=== PATIENT | male | born 1995 | race African-American/Black ===

== ENCOUNTER 2017-04-26 11:04 | Emergency (ER) | payer OTHER, MEDICAID ==
[~2017-04-26] VITALS: Ht 177.8 cm; Wt 70.0 kg
[2017-04-26 11:05] VITALS: BP 136/62; PULSE 83; RESP 16; TEMP 98.1; O2SAT 100
[2017-04-26] MEDS ORDERED: ACETAMINOPHEN/HYDROcodone 325 MG/5 MG TAB PO ONE (11:30)
[2017-04-26] MEDS ORDERED: TETANUS/DIPHTHERIA TOXOID ADULT 0.5 ML VIAL IM ONE (11:30)
[2017-04-26] MEDS ORDERED: AMOXICILLIN/CLAVULANATE K 875 MG TAB PO ONE (11:30)
--- NOTE | 2017-04-26 11:42 | PD ---
HPI Chief Complaint: Bite or Sting Time Seen by Provider: 11:38 Travel History International Travel<30 days: No Contact w/Intl Traveler<30days: No Traveled to known affect area: No History of Present Illness HPI 21- year old male brought to the ED by police for medical management of a dog bite. The police report that the patient was running from them and the police canine ran after him. The patient incurred 8 bites to his right leg ranging from his knee to ankle. The patient reports no pain elsewhere. The patient reports he is not up to date with his tetanus shot. This happened hour before coming. He denies any other injuries. He does have a history of HIV but unsure if he takes anything. No allergies to medication. No other medical issues. Per patient his pain currently is 8 out of 10 especially with touch on the leg. PFSH Past Medical History Medical History: Unable to Obtain Diminished Hearing: No Past Surgical History Surgical History: Unable to Obtain Social History Alcohol Use: No (DENIES ) Tobacco Use: No (DENIES ) Substance Use: No (DENIES ) Allergies-Medications (Allergen,Severity, Reaction): Coded Allergies: No Known Allergies (Unverified , 04/26/17) Reported Meds & Prescriptions Reported Meds & Active Scripts Active Diclofenac Sodium DR (Diclofenac Sodium) 75 Mg Tabdr 75 Mg PO BID PRN Augmentin (Amoxicillin-Clavulanate) 875-125 Mg Tab 1 Tab PO BID 10 Days Review of Systems General / Constitutional: No: Fever, Chills, Weight Gain, Weight Loss, Other Eyes: No: Diploplia, Blurred Vision, Photophobia, Drainage, Redness, Foreign Body Sensation, Pain, Tearing, Blind Spots, Visual changes, Blindness, Other HENT: No: Headaches, Vertigo, Lightheadedness, Sore Throat, Rhinitis, Rhinorrhea, Congestion, Nosebleed, Neck Stiffness, Neck Pain, Masses, Gingival Bleeding, Dental Difficulties, Ear Discharge, Earache, Other Cardiovascular: No: Chest Pain or Discomfort, Palpitations, Irregular Rhythm, Tachycardia, Diaphoresis, Syncope, Dyspnea on exertion, Varicosities, Edema, Cyanosis, Varicosities, Phlebitis, Claudication, Other Respiratory: No: Cough, Shortness of Breath, Wheezing, Sneezing, Orthopnea, Hemoptysis, Stridor, Night Sweats, Pleuritic Pain, Other Gastrointestinal: No: Nausea, Vomiting, Diarrhea, Abdominal Pain, Hematemesis, Hematochezia, Constipation, Changes in Bowel Habits, Indigestion, Dysphagia, Loss of Appetite, Other Genitourinary: No: Urgency, Frequency, Dysuria, Nocturia, Hematuria, Decreased Urinary Output, Oliguria, Hesitancy, Dribbling, Incontinence, Pelvic Pain, Flank Pain, Dyspareunia, Discharge, Dysmenorrhea, Menorrhagia, Metorrhagia, Vaginal Bleeding, Other Musculoskeletal: No: Myalgias, Arthralgias, Limited ROM, Weakness, Cramping, Edema, Pain, Atrophy, Other Skin: Positive Other (multiple dog bites to right leg) Neurologic: No: Weakness, Dizziness, Syncope, Focal Abnormalities, Coordination Problem, Tremor, Ataxia, Headache, Change in Mentation, Slurred Speech, Paresthesia, Incontinence, Seizures, Sensory Disturbance, Other Psychiatric: No: Anxiety, Depression, Suicidal Ideations, Disorder of Thought, Mood Disorder, Substance Abuse, Homicidal Ideation, Other Endocrine: No: Heat Intolerance, Cold Intolerance, Polyuria, Polydipsia, Other Hematologic/Lymphatic: No: Easy Bruising, Lymph Node Enlargement, Other Physical Exam Narrative GENERAL: SKIN: Warm and dry. HEAD: Atraumatic. Normocephalic. EYES: Pupils equal and round. No scleral icterus. No injection or drainage. ENT: No nasal bleeding or discharge. Mucous membranes pink and moist. NECK: Trachea midline. No JVD. CARDIOVASCULAR: Regular rate and rhythm. RESPIRATORY: No accessory muscle use. Clear to auscultation. Breath sounds equal bilaterally. GASTROINTESTINAL: Abdomen soft, non-tender, nondistended. Hepatic and splenic margins not palpable. MUSCULOSKELETAL: 8 puncture bites from a dog on the right lower extremity ranging from knee to ankle, all superficial, largest one is on the posterior ankle about 0.4 mms, well approximated. Extremities without clubbing, cyanosis , or edema. No obvious deformities. 2+ pulses bilaterally. NEUROLOGICAL: Awake and alert. No obvious cranial nerve deficits. Motor grossly within normal limits. Five out of 5 muscle strength in the arms and legs. Normal speech. PSYCHIATRIC: Appropriate mood and affect; insight and judgment normal. Data Data Last Documented VS Vital Signs Date Time Temp Pulse Resp B/P Pulse Ox O2 Delivery O2 Flow Rate FiO2 04/26/17 11:05 98.1 83 16 136/62 100 Orders Ankle, Complete ([id number]) (04/26/17 ) Wound Care (04/26/17 11:27) Tetanus/Diphtheria Tox Adult (Tetanus/Di (04/26/17 11:30) Amoxicil-Clavulanate (Augmentin) (04/26/17 11:30) Acetamin-Hydrocod 325-5 Mg ([place] 5-325 (04/26/17 11:30) Crutches (04/26/17 12:09) MDM Medical Decision Making Medical Screen Exam Complete: Yes Emergency Medical Condition: Yes Medical Record Reviewed: Yes Interpretation(s) xray showed no sign of bony injury Differential Diagnosis Dog bite vs fracture vs laceration Narrative Course 21-year-old male that presents to the ED for evaluation of dog bite by police dog. Patient has a right-sided lower extremity bites. About 8 of them. Because one is about half a centimeter in diameter. Most of them are very well approximated. Because of the risk of infection and do not recommend suturing them also as most of them are puncture wounds. Most of them are less than a quarter millimeter. Patient was made aware of this. he was told he will have scars from the bites but should be minimal. Recommend wound care and start patient on Augmentin. He does have a history of HIV. Patient was given wound care. Given tetanus booster. Patient will be given a prescription for diclofenac sodium and Augmentin. Follow with PCP. See ED if worsening symptoms. Diagnosis Primary Impression: Dog bite of right lower leg Qualified Code: S81.851A - Dog bite of right lower leg, initial encounter Patient Instructions: Narcotic given in the ED, General Instructions Additional Instructions: Take medications as prescribed. Change dressings daily. Follow with PCP. See ED if worsening symptoms. Apply ice or warm compresses to the area of pain. Watch for signs of infection. Med/Other Pt SpecificInfo: Prescription(s) given, Wound Care Scripts Diclofenac Sodium DR 75 Mg Tabdr75 Mg PO BID PRN (PAIN SCALE 1 TO 10) #20 TAB Prov:Will Quiroga MD 04/26/17 Amoxicillin-Clavulanate (Augmentin)875-125 Mg Tab1 Tab PO BID 10 Days Ref 0 Prov:Will Quiroga MD 04/26/17 Disposition: 01 DISCHARGE HOME Condition: Stable Gorge Renner Apr 26, 2017 11:42
[2017-04-26] MEDS ORDERED: DICL75TA PO (12:09)
[2017-04-26] MEDS ORDERED: AUGM875T3 PO (12:09)
--- NOTE | 2017-04-26 12:29 | RADRPT ---
EXAM DATE/TIME: 04/26/2017 11:44 [facility] COMPARISON: No previous studies available for comparison. INDICATIONS : Dog bite to the right ankle. Medial and lateral puncture wounds. MEDICAL HISTORY : None. SURGICAL HISTORY : None. ENCOUNTER: Initial ACUITY: 1 day PAIN SCORE: 5/10 LOCATION: Right ankle. FINDINGS: Three view exam was performed of the right ankle. The bony structures are in normal alignment. No e vidence of fracture, dislocation, or soft tissue swelling. The ankle mortise is intact. No radiopaq ue foreign bodies are seen. Bony mineralization is normal. CONCLUSION: Unremarkable examination of the right ankle. Hernan Olivier MD on April 26, 2017 at 12:27 Board Certified Radiologist. This report was verified electronically.
== END 2017-04-26 12:34 ==
LOC: NEDAMB 11:04
DX: S81.851A Open bite, right lower leg, initial encounter (principal); W54.0XXA Bitten by dog, initial encounter; Y93.02 Activity, running; Y35.893A Legal intervention involving other specified means, suspect injured, initial encounter; B20 Human immunodeficiency virus [HIV] disease; Z23 Encounter for immunization
CPT/HCPCS: 73610; 90471; 90714; 99284; E0113

== ENCOUNTER 2017-04-28 23:13 | Emergency (ER) | payer MEDICAID, OTHER ==
[~2017-04-28] VITALS: Ht 165.1 cm; Wt 70.0 kg
[~2017-04-28 23:13] MED LIST: AUGM875T3 PO; DICL75TA PO
[2017-04-28 23:16] VITALS: BP 111/66; PULSE 68; RESP 14; TEMP 98.3; O2SAT 99
[2017-04-28] MEDS ORDERED: AUGM875T3 PO (23:39)
--- NOTE | 2017-04-28 23:41 | PD ---
HPI Chief Complaint: Bite or Sting Time Seen by Provider: 23:30 Travel History International Travel<30 days: No Contact w/Intl Traveler<30days: No Traveled to known affect area: No History of Present Illness HPI 21-year-old male with history of HIV presents for evaluation of dog bite. 2 days ago he was bitten by a police dog. He was seen here at that time, ankle x- ray was performed and it was unremarkable. He was started on Augmentin. A tetanus vaccination was given. He reports that he was released from retirement today and he doesn't know what happened to the prescriptions. For this reason he presents here again. No fevers, chills, drainage. No other complaints. [facility] Past Medical History Diminished Hearing: No Immune Disorder: Yes (HIV) Medical other: Yes (HIV) Past Surgical History Surgical History: No Previous Surgery Social History Alcohol Use: No (DENIES ) Tobacco Use: No (DENIES ) Substance Use: No (DENIES ) Allergies-Medications (Allergen,Severity, Reaction): Coded Allergies: No Known Allergies (Unverified , 04/28/17) Reported Meds & Prescriptions Reported Meds & Active Scripts Active No Active Prescriptions or Reported Medications Review of Systems Except as stated in HPI: all other systems reviewed are Neg Physical Exam Narrative GENERAL: Well-nourished male in no acute distress SKIN: Warm and dry. Puncture wounds are noted on the right lower leg. Superficial. No erythema, drainage. HEAD: Atraumatic. Normocephalic. EYES: Pupils equal and round. No scleral icterus. No injection or drainage. ENT: No nasal bleeding or discharge. Mucous membranes pink and moist. NECK: Trachea midline. No JVD. CARDIOVASCULAR: Regular rate and rhythm. No murmur appreciated. RESPIRATORY: No accessory muscle use. Clear to auscultation. Breath sounds equal bilaterally. GASTROINTESTINAL: Abdomen soft, non-tender, nondistended. Hepatic and splenic margins not palpable. MUSCULOSKELETAL: Skin as noted above no obvious bony deformity, the compartments of the right lower extremity are soft. NEUROLOGICAL: Awake and alert. No obvious cranial nerve deficits. Motor grossly within normal limits. Normal speech. Data Data Last Documented VS Vital Signs Date Time Temp Pulse Resp B/P Pulse Ox O2 Delivery O2 Flow Rate FiO2 04/28/17 23:16 98.3 68 14 111/66 99 Room Air Orders Amoxicil-Clavulanate (Augmentin) (04/28/17 23:45) [facility] Medical Decision Making Medical Screen Exam Complete: Yes Emergency Medical Condition: Yes Medical Record Reviewed: Yes Differential Diagnosis Prescription misplacement versus medication refill versus dog bite Narrative Course The patient will be given a refill of his Augmentin. First as provided here. There is no evidence of infection currently but I did discuss with him that dog bites have a high risk of infection. Stable for discharge. Diagnosis Primary Impression: Dog bite of right lower leg Qualified Code: S81.851A - Dog bite of right lower leg, initial encounter Referrals: [facility] Additional Instructions: Medication as prescribed. Wash the wounds daily with soap and water and apply antibiotic cream. Return for any emergent medical conditions. Med/Other Pt SpecificInfo: Prescription(s) given Scripts Amoxicillin-Clavulanate (Augmentin)875-125 Mg Tab1 Tab PO BID 10 Days Ref 0 Prov:Giorgi Rosales MD 04/28/17 Disposition: 01 DISCHARGE HOME Condition: Stable Colin Blackman Apr 28, 2017 23:41
[2017-04-28] MEDS ORDERED: AMOXICILLIN/CLAVULANATE K 875 MG TAB PO ONE (23:45)
== END 2017-04-29 00:28 | disposition home or self-care (01) ==
LOC: NEPK 23:13
DX: S81.851A Open bite, right lower leg, initial encounter (principal); Z21 Asymptomatic human immunodeficiency virus [HIV] infection status; W54.0XXA Bitten by dog, initial encounter
CPT/HCPCS: 99281

== ENCOUNTER 2017-04-29 01:53 | Emergency (ER) | payer MEDICAID, OTHER ==
[~2017-04-29] VITALS: Ht 170.2 cm; Wt 70.0 kg
[~2017-04-29 01:53] MED LIST changes: -DICL75TA PO
[2017-04-29 02:10] VITALS: BP 137/78; PULSE 106; RESP 18; TEMP 98.2; O2SAT 97
--- NOTE | 2017-04-29 02:14 | PD ---
HPI Chief Complaint: [place] act Time Seen by Provider: 02:05 Travel History International Travel<30 days: No Contact w/Intl Traveler<30days: No Traveled to known affect area: No History of Present Illness HPI 21-year-old male with history of HIV presents under [place] act initiated by the Police Department. The officer reports that they received a call in regards to a suspicious person. When they made contact with the patient he said that he was going to kill himself and he would also like to steal the complaint evaluation officer's car and shoot the complaint evaluation officer. Upon his arrival here he is extremely combative and requiring the use of chemical and physical restraints. This patient was just seen here on April 26 for evaluation after a dog bite by a police dog. He then went to [facility]. He returned today for reevaluation of the dog bite. He was given a prescription for Augmentin. He has no other complaints at this time. [facility] Past Medical History Diminished Hearing: No Immune Disorder: Yes (HIV) Social History Alcohol Use: No (DENIES ) Tobacco Use: No (DENIES ) Substance Use: No (DENIES ) Allergies-Medications (Allergen,Severity, Reaction): Coded Allergies: No Known Allergies (Unverified , 04/28/17) Reported Meds & Prescriptions Reported Meds & Active Scripts Active Augmentin (Amoxicillin-Clavulanate) 875-125 Mg Tab 1 Tab PO BID 10 Days Review of Systems ROS Limitations: Combative Except as stated in HPI: all other systems reviewed are Neg Physical Exam Exam Limitations: Combative Narrative GENERAL: Well-developed well-nourished male who is shouting obscenities, violent and combative. SKIN: Warm and dry. Puncture wounds noted to the lower leg. HEAD: Atraumatic. Normocephalic. EYES: Pupils equal and round. No scleral icterus. No injection or drainage. ENT: No nasal bleeding or discharge. Mucous membranes pink and moist. NECK: Trachea midline. No JVD. CARDIOVASCULAR: Regular rate and rhythm. No murmur appreciated. RESPIRATORY: No accessory muscle use. Clear to auscultation. Breath sounds equal bilaterally. GASTROINTESTINAL: Abdomen soft, non-tender, nondistended. Hepatic and splenic margins not palpable. MUSCULOSKELETAL: No obvious deformities. No clubbing. No cyanosis. No edema. NEUROLOGICAL: Awake and alert. No obvious cranial nerve deficits. Motor grossly within normal limits. Normal speech. PSYCHIATRIC: Violent, uncooperative, insight and judgment are limited. Data Data Orders Complete Blood Count With Diff (04/29/17 02:10) Comprehensive Metabolic Panel (04/29/17 02:10) Psych Screen (04/29/17 02:10) Haloperidol Inj (Haldol Inj) (04/29/17 02:15) Lorazepam Inj (Ativan Inj) (04/29/17 02:15) Restraints Violent (04/29/17 02:10) Drug Screen, Random Urine (04/29/17 02:10) Alcohol (Ethanol) (04/29/17 02:10) Labs Laboratory Tests Test 04/29/17 02:30 White Blood Count 10.9 TH/MM3 Red Blood Count 4.58 MIL/MM3 Hemoglobin 14.0 GM/DL Hematocrit 42.2 % Mean Corpuscular Volume 92.1 FL Mean Corpuscular Hemoglobin 30.6 PG Mean Corpuscular Hemoglobin 33.2 % Concent Red Cell Distribution Width 12.6 % Platelet Count 237 TH/MM3 Mean Platelet Volume 7.7 FL Neutrophils (%) (Auto) 51.1 % Lymphocytes (%) (Auto) 37.2 % Monocytes (%) (Auto) 8.8 % Eosinophils (%) (Auto) 2.6 % Basophils (%) (Auto) 0.3 % Neutrophils # (Auto) 5.6 TH/MM3 Lymphocytes # (Auto) 4.1 TH/MM3 Monocytes # (Auto) 1.0 TH/MM3 Eosinophils # (Auto) 0.3 TH/MM3 Basophils # (Auto) 0.0 TH/MM3 CBC Comment DIFF FINAL Differential Comment Sodium Level 140 MEQ/L Potassium Level 4.0 MEQ/L Chloride Level 103 MEQ/L Carbon Dioxide Level 28.4 MEQ/L Anion Gap 9 MEQ/L Blood Urea Nitrogen 9 MG/DL Creatinine 1.08 MG/DL Estimat Glomerular Filtration 105 ML/MIN Rate Random Glucose 84 MG/DL Calcium Level 8.9 MG/DL Total Bilirubin 0.2 MG/DL Aspartate Amino Transf 60 U/L (AST/SGOT) Alanine Aminotransferase 64 U/L (ALT/SGPT) Alkaline Phosphatase 90 U/L Total Protein 8.0 GM/DL Albumin 3.7 GM/DL Urine Opiates Screen NEG Urine Barbiturates Screen NEG Urine Amphetamines Screen NEG Urine Benzodiazepines Screen NEG Urine Cocaine Screen NEG Urine Cannabinoids Screen POS Ethyl Alcohol Level LESS THAN 3 MG/DL MDM Medical Decision Making Medical Screen Exam Complete: Yes Emergency Medical Condition: Yes Medical Record Reviewed: Yes Differential Diagnosis Acute psychosis, adjustment reaction, substance induced mood disorder, schizophrenia, bipolar disorder Narrative Course 21-year-old male presents for evaluation of suicidal ideation. He is under [place] act. He was extremely combative when he arrived and therefore Ativan and Haldol will be administered and he will be placed under restraints. Mental health screening discussed with the patient. Psychiatric screen ordered. Diagnosis Primary Impression: Medical clearance for psychiatric admission Colin Blackman Apr 29, 2017 02:14
[2017-04-29] MEDS ORDERED: HALOPERIDOL LACTATE 5 MG/ML AMP IM ONE (02:15)
[2017-04-29] MEDS ORDERED: LORazepam 2 MG/ML VIAL IM ONE (02:15)
[2017-04-29 02:40] LABS: AUTOMATED NEUTROPHIL # 5.6 TH/MM3 (1.8-7.7); BASOPHIL % 0.3 % (0.0-2.0); EOSINOPHIL # 0.3 TH/MM3 (0-0.4); EOSINOPHIL % 2.6 % (0.0-4.0); HEMATOCRIT 42.2 % (39.0-51.0); HEMO FLAGS DIFF FINAL; LYMPH % 37.2 % (9.0-44.0); LYMPHOCYTE # 4.1 TH/MM3 (1.0-4.8); MEAN CELL VOLUME 92.1 FL (80.0-100.0); MEAN CORPUSCULAR HEMOGLOBIN 30.6 PG (27.0-34.0); MEAN CORPUSCULAR HGB CONC 33.2 % (32.0-36.0); MONO % 8.8 % (0.0-8.0); NEUT % 51.1 % (16.0-70.0); PLATELET COUNT 237 TH/MM3 (150-450); RED BLOOD COUNT 4.58 MIL/MM3 (4.50-5.90); RED CELL DISTRIBUTION WIDTH 12.6 % (11.6-17.2); WHITE BLOOD COUNT 10.9 TH/MM3 (4.0-11.0)
[2017-04-29 02:57] LABS: ALKALINE PHOSPHATASE 90 U/L (45-117); TOTAL BILIRUBIN ADULT 0.2 MG/DL (0.2-1.0)
[2017-04-29 03:02] LABS: ALCOHOL LESS THAN 3 MG/DL (0-5); ALT (GPT) 64 U/L (12-78); ANION GAP 9 MEQ/L (5-15); AST (GOT) 60 U/L (15-37); BICARBONATE 28.4 MEQ/L (21.0-32.0); BLOOD UREA NITROGEN 9 MG/DL (7-18); CHLORIDE 103 MEQ/L (98-107); GLOMERULAR FILTRATION RATE 105 ML/MIN (>89); SODIUM (NA) 140 MEQ/L (136-145)
[2017-04-29 07:00] VITALS: BP 127/78; PULSE 74; RESP 16; O2SAT 99
--- NOTE | 2017-04-29 10:16 | PD ---
History of Present Illness Chief Complaint: Psychiatric Symptoms Time Seen by Provider: 10:00 Travel History International Travel<30 Days: No Contact w/Intl Traveler<30days: No Known affected area: No Legal Status Legal Status: [place] Act [place] Act Signed By: History of Present Illness: 21-year-old male brought in under a [place] act initiated by law enforcement for suicidal threats. Patient lives in [place] and states he has family there. At this point, he wishes to return to his home town and family. He does not have any suicidal or homicidal ideation, plan or intent at this time. Patient noted to be positive for cannabis and admits to smoking marijuana. Patient also noted to have recent history of incarceration for antisocial behavior. This physician feels the patient was likely malingering when first evaluated by law enforcement and the emergency department staff. At this time, patient is calm and cooperative with no evidence of psychosis. He also demonstrates no cognitive impairment. PFSH Past Medical History Medical History: Denies Significant Hx Diminished Hearing: No Immune Disorder: Yes (HIV) Psychiatric History Psychiatric History Hx Psychiatric Treatment: Denied History of Inpatient Treatment: No Guns or firearms in home: No Social History Hx Alcohol Use: No (DENIES ) Hx Tobacco Use: No (DENIES ) Hx Substance Use: No (DENIES ) Hx of Substance Use Treatment: No Allergies-Medications (Allergen,Severity, Reaction): Coded Allergies: No Known Allergies (Unverified , 04/28/17) Reported Meds & Prescriptions Reported Meds & Active Scripts Active Augmentin (Amoxicillin-Clavulanate) 875-125 Mg Tab 1 Tab PO BID 10 Days Review of Systems Except as stated in HPI: all other systems reviewed are Neg Exam Alert: Yes [place]: Person, Place, Date, Situation Mood: Calm Affect: Appropriate Speech: Clear Eye Contact: Normal Memory Intact: Immediate, Recent, Remote Insight/Judgement Adequate MDM Medical Decision Making Medical Record Reviewed: Yes Assessment/Plan Patient's [place] act is being lifted as he no longer meets civil commitment criteria and certainly does not meet criteria for inpatient psychiatric hospitalization. Although the patient is at risk for acting out behavior in the future, this is both unpredictable and unavoidable. This physician does not feel it appropriate and in fact feels it is counter therapeutic to admit the patient to a psychiatric unit when he appears to have been malingering. He is being referred for outpatient counseling at [facility]. Orders Complete Blood Count With Diff (04/29/17 02:10) Comprehensive Metabolic Panel (04/29/17 02:10) Psych Screen (04/29/17 02:10) Haloperidol Inj (Haldol Inj) (04/29/17 02:15) Lorazepam Inj (Ativan Inj) (04/29/17 02:15) Restraints Violent (04/29/17 02:10) Drug Screen, Random Urine (04/29/17 02:10) Alcohol (Ethanol) (04/29/17 02:10) Diet Regular Basic (04/29/17 Breakfast) Diet Regular Basic (04/29/17 Lunch) Results Vital Signs Date Time Temp Pulse Resp B/P Pulse Ox O2 Delivery O2 Flow Rate FiO2 04/29/17 02:10 98.2 106 18 137/78 97 Laboratory Tests Test 04/29/17 02:30 White Blood Count 10.9 Red Blood Count 4.58 Hemoglobin 14.0 Hematocrit 42.2 Mean Corpuscular Volume 92.1 Mean Corpuscular Hemoglobin 30.6 Mean Corpuscular Hemoglobin 33.2 Concent Red Cell Distribution Width 12.6 Platelet Count 237 Mean Platelet Volume 7.7 Neutrophils (%) (Auto) 51.1 Lymphocytes (%) (Auto) 37.2 Monocytes (%) (Auto) 8.8 Eosinophils (%) (Auto) 2.6 Basophils (%) (Auto) 0.3 Neutrophils # (Auto) 5.6 Lymphocytes # (Auto) 4.1 Monocytes # (Auto) 1.0 Eosinophils # (Auto) 0.3 Basophils # (Auto) 0.0 CBC Comment DIFF FINAL Differential Comment Sodium Level 140 Potassium Level 4.0 Chloride Level 103 Carbon Dioxide Level 28.4 Anion Gap 9 Blood Urea Nitrogen 9 Creatinine 1.08 Estimat Glomerular Filtration 105 Rate Random Glucose 84 Calcium Level 8.9 Total Bilirubin 0.2 Aspartate Amino Transf 60 (AST/SGOT) Alanine Aminotransferase 64 (ALT/SGPT) Alkaline Phosphatase 90 Total Protein 8.0 Albumin 3.7 Urine Opiates Screen NEG Urine Barbiturates Screen NEG Urine Amphetamines Screen NEG Urine Benzodiazepines Screen NEG Urine Cocaine Screen NEG Urine Cannabinoids Screen POS Ethyl Alcohol Level LESS THAN 3 Diagnosis Primary Impression: Adjustment disorder with mixed disturbance of emotions and conduct Additional Impression: Cannabis abuse Problem Qualifiers Henri Velásquez MD Apr 29, 2017 10:16
[2017-04-29 10:41] VITALS: BP 128/77
[2017-04-29 15:00] VITALS: BP 118/72
== END 2017-04-29 15:01 | disposition home or self-care (01) ==
LOC: NEPD 01:53
DX: Z02.89 Encounter for other administrative examinations (principal); F43.29 Adjustment disorder with other symptoms; B20 Human immunodeficiency virus [HIV] disease; F12.10 Cannabis abuse, uncomplicated
CPT/HCPCS: 80053; 80307; 85025; 96372; 99285; J1630; J2060